=== PATIENT | female | born 1995 | race American Indian/Alaskan Native ===

== ENCOUNTER 2020-10-28 03:11 | Outpatient (CLI) | payer MEDICAID ==
[2020-10-28] MEDS ORDERED: LACTATED RINGERS 1,000 ML IV ONE (04:08)
[2020-10-28 04:09] VITALS: BP 104/61
[2020-10-28 04:37] LABS: Bilirubin,Urine NEG (Negative); Blood,Urine NEG (Negative); Color,Urine Yellow (Yellow); Mucus,Urine 2+ /HPF; RBC,Urine < 1.0 /HPF (0.0-6.0); Urobilinogen,Urine < 2.0 mg/dL (<2.0)
== END 2020-10-28 05:55 | disposition home or self-care (01) ==
LOC: TRG 03:11
PROVIDERS: ATTEND Obstetrics & Gynecology
DX: O26.893 Other specified pregnancy related conditions, third trimester (principal); M54.5 Low back pain; R10.31 Right lower quadrant pain; R10.32 Left lower quadrant pain; Z87.891 Personal history of nicotine dependence; F41.9 Anxiety disorder, unspecified; Z3A.35 35 weeks gestation of pregnancy
CPT/HCPCS: 59025; 81001; 96360; J7120

== ENCOUNTER 2020-11-14 21:52 | Outpatient (CLI) | payer MEDICAID ==
[2020-11-14 22:22] VITALS: BP 101/66
[2020-11-14] MEDS ORDERED: LACTATED RINGERS 1,000 ML IV ONE (22:33)
[2020-11-14 22:52] LABS: Bilirubin,Urine NEG (Negative); Blood,Urine NEG (Negative); Color,Urine Yellow (Yellow); Mucus,Urine FEW /HPF; Protein,Urine <15 mg/dL mg/dL (Negative); RBC,Urine < 1.0 /HPF (0.0-6.0); Urobilinogen,Urine < 2.0 mg/dL (<2.0)
[2020-11-14] MEDS ORDERED: TERBUTALINE 1 MG/1 ML INJ SUB-Q SCH (23:00)
== END 2020-11-15 02:08 | disposition home or self-care (01) ==
LOC: TRG 21:52 → APU 21:54 → TRG 11-15 02:08
PROVIDERS: ATTEND Obstetrics & Gynecology
DX: O62.9 Abnormality of forces of labor, unspecified (principal); O99.343 Other mental disorders complicating pregnancy, third trimester; F41.9 Anxiety disorder, unspecified; Z3A.38 38 weeks gestation of pregnancy
CPT/HCPCS: 81001; 96360